=== PATIENT | male | born 1965 | race American Indian/Alaskan Native ===

== ENCOUNTER 2018-02-22 06:00 | Emergency (ER) | payer MEDICAID ==
[2018-02-22 06:26] VITALS: O2SAT 98
[2018-02-22] MEDS ORDERED: Iohexol 240 (50 ml) PO ONE (06:43)
[2018-02-22] MEDS ORDERED: Iohexol 240 (50 ml) ONE (06:54)
--- NOTE | 2018-02-22 07:00 | ED PDOC ---
HPI: Abdomen Time Seen by Provider: 02/22/18 06:30 Chief Complaint (Nursing): Abdominal Pain Chief Complaint (Provider): Abdominal Pain History Per: Patient History/Exam Limitations: no limitations Onset/Duration Of Symptoms: Days Current Symptoms Are (Timing): Still Present Associated Symptoms: Fever, Vomiting. denies: Diarrhea Additional Complaint(s): Jonnie Huynh is a 52 year old male with no past medical history who is presenting to the ED for evaluation of abdominal pain with associated vomiting and fevers, onset 3 days ago. Patient describes his abdominal pain as a 5/10. He states he was not tolerating solid foods PO but was able to tolerate liquids. He reports that he has been taking Mylanta with minimal relief. Patient denies any diarrhea or any other medical complaints. PMD: Doctor, Jacqui Past Medical History Reviewed: Historical Data, Nursing Documentation, Vital Signs Vital Signs: Last Vital Signs Temp 97 F L 02/22/18 11:21 Pulse 78 02/22/18 11:21 Resp 19 02/22/18 11:21 BP 128/76 02/22/18 11:21 Pulse Ox 98 02/22/18 11:21 - Medical History PMH: No Chronic Diseases - Surgical History Surgical History: No Surg Hx - Family History Family History: States: Unknown Family Hx - Social History Current smoker - smoking cessation education provided: Yes Alcohol: Social Drugs: Denies - Home Medications Home Medications: Ambulatory Orders Medication Instructions Recorded Ondansetron [Zofran] 4 mg PO Q8H #10 tab 02/22/18 Sulfamethoxazole/Trimethoprim 1 tab PO BID #20 tab 02/22/18 [Bactrim DS 800 mg-160 mg] Tamsulosin [Flomax] 0.4 mg PO DAILY #5 cap 02/22/18 traMADol [Ultram] 50 mg PO Q8 #10 tab 02/22/18 - Allergies Allergies/Adverse Reactions: Allergies Allergy/AdvReac Type Severity Reaction Status Date / Time No Known Allergies Allergy Verified 02/22/18 06:23 Review of Systems ROS Statement: Except As Marked, All Systems Reviewed And Found Negative Constitutional: Positive for: Fever Gastrointestinal: Positive for: Vomiting, Abdominal Pain. Negative for: Diarrhea Physical Exam - Reviewed Nursing Documentation Reviewed: Yes Vital Signs Reviewed: Yes - Physical Exam Appears: Positive for: Well, Non-toxic, No Acute Distress Head Exam: Positive for: ATRAUMATIC, NORMAL INSPECTION, NORMOCEPHALIC Skin: Positive for: Normal Color, Warm, DRY Eye Exam: Positive for: EOMI, Normal appearance, PERRL ENT: Positive for: Normal ENT Inspection Neck: Positive for: Normal, Painless ROM Cardiovascular/Chest: Positive for: Regular Rate, Rhythm Respiratory: Positive for: Normal Breath Sounds Gastrointestinal/Abdominal: Positive for: Tenderness (diffuse abdominal tenderness) Back: Positive for: Normal Inspection Extremity: Positive for: Normal ROM Neurologic/Psych: Positive for: Alert, Oriented. Negative for: Motor/Sensory Deficits - Laboratory Results Result Diagrams: 02/22/18 07:07 02/22/18 07:07 - ECG O2 Sat by Pulse Oximetry: 98 (RA) Pulse Ox Interpretation: Normal Medical Decision Making Medical Decision Making: Time: 6:44 Plan: --CT Abd/Pelvis --CMP --Lipase --CBC --Omnipaque 50 ml PO --Urinalysis --Urine Culture 7:00 Patient will be signed out to Dr. Camacho pending urinalysis, workup, labs, and CT. Scribe Attestation: Documented by, Ophelia Brewer acting as a scribe for Deon Armas MD. Provider Scribe Attestation: All medical record entries made by the Scribe were at my direction and personally dictated by me. I have reviewed the chart and agree that the record accurately reflects my personal performance of the history, physical exam, medical decision making, and the department course for this patient. I have also personally directed, reviewed, and agree with the discharge instructions and disposition. Disposition - Clinical Impression Clinical Impression: Kidney stone, Renal cyst - Patient ED Disposition Is Patient to be Admitted: Transfer of Care - Disposition Referrals: [facility] [Outside] Hector Sam MD [Staff Provider] - Disposition: Transfer of Care Disposition Time: 07:00 Condition: FAIR Prescriptions: Ondansetron [Zofran] 4 mg PO Q8H #10 tab Sulfamethoxazole/Trimethoprim [Bactrim DS 800 mg-160 mg] 1 tab PO BID #20 tab Tamsulosin [Flomax] 0.4 mg PO DAILY #5 cap traMADol [Ultram] 50 mg PO Q8 #10 tab Instructions: Kidney Stones in Adults, Polycystic Kidney Disease Forms: [employer] (Bulgarian) Patient Signed Over To: Alfonso Camacho
[2018-02-22 07:15] LABS: BASO # 0.1 K/uL (0.0-0.2); BASO % 1.2 % (0.0-2.0); EOS # 0.2 K/uL (0.0-0.7); HEMOGLOBIN 15.2 g/dL (12.0-18.0); LYMPH # 2.8 K/uL (1.0-4.3); MEAN CORPUSCULAR HEMOGLOBIN 33.5 pg (27.0-31.0); MEAN CORPUSCULAR HGB CONC 34.5 g/dL (33.0-37.0); MEAN PLATELET VOLUME 9.2 fl (7.2-11.7); MONO # 0.6 K/uL (0.0-0.8); MONO % 5.9 % (0.0-10.0); NEUT # 5.7 K/uL (1.8-7.0); NEUT % 60.9 % (50.0-75.0); NRBC % 0.1 % (0.0-0.0); RBC 4.55 Mil/uL (4.40-5.90); RED CELL DISTRIBUTION WIDTH 14.1 % (11.5-14.5); WHITE BLOOD COUNT 9.3 K/uL (4.8-10.8)
[2018-02-22 07:19] LABS: ALB/GLOB RATIO 1.3 (1.0-2.1)
[2018-02-22 07:23] LABS: ALBUMIN 4.3 g/dL (3.5-5.0); ALT/SGPT 24 U/L (21-72); AST/SGOT 25 U/L (17-59); BLOOD UREA NITROGEN 19 mg/dl (9-20); CALCIUM 9.5 mg/dL (8.4-10.2); GFR AFRICAN-AMERICAN > 60; GFR NON-AFRICAN AMERICAN > 60; LIPASE 24 U/L (23-300)
[2018-02-22 07:24] LABS: SQUAMOUS EPITHIAL 3 /hpf (0-5); URINE BILIRUBIN NEGATIVE (NEGATIVE); URINE BLOOD SMALL (NEGATIVE); URINE CLARITY SLIGHTY-CLOUDY (Clear); URINE COLOR YELLOW (YELLOW); URINE GLUCOSE (UA) NEG (Normal); URINE HYALINE CAST 0-2 /hpf (0-2); URINE LEUKOCYTE ESTERASE NEG Leu/uL (Negative); URINE PROTEIN 30 mg/dL (NEGATIVE); URINE UROBILINOGEN 0.2-1.0 mg/dL (0.2-1.0)
[2018-02-22] MEDS ORDERED: Potassium Chloride 20 mEq ER Tab PO ONE (07:40)
--- NOTE | 2018-02-22 08:10 | ED PDOC ---
- Laboratory Results Result Diagrams: 02/22/18 07:07 02/22/18 07:07 - ECG O2 Sat by Pulse Oximetry: 98 (RA) - Progress Re-evaluation Time: 10:51 Condition: Improved Medical Decision Making Medical Decision Makin:00 -Patient endorsed to me by Dr. Armas pending CT, workup, labs and reevaluation. Disposition - Clinical Impression Clinical Impression: Kidney stone, Renal cyst - POA Present On Arrival: None - Disposition Referrals: Hector Sam MD [Staff Provider] - [facility] [Outside] Disposition: Routine/Home Disposition Time: 10:55 Prescriptions: Ondansetron [Zofran] 4 mg PO Q8H #10 tab Sulfamethoxazole/Trimethoprim [Bactrim DS 800 mg-160 mg] 1 tab PO BID #20 tab Tamsulosin [Flomax] 0.4 mg PO DAILY #5 cap traMADol [Ultram] 50 mg PO Q8 #10 tab Instructions: Kidney Stones in Adults, Polycystic Kidney Disease Forms: [employer] (Cameroonian)
[2018-02-22 09:03] VITALS: PULSE 78; RESP 19
[2018-02-22] MEDS ORDERED: Iohexol 300 100 ML IJ ONE (09:08)
[2018-02-22] MEDS ORDERED: Sodium Chloride 0.9% 100 ML ONE (09:08)
--- NOTE | 2018-02-22 10:33 | CT ---
PROCEDURE: CT Abdomen and Pelvis with contrast HISTORY: abdominal pain left sided COMPARISON: None. TECHNIQUE: Contrast dose: 95 cc Omnipaque 300 Radiation dose: Total exam DLP = 708.23 mGy-cm. This CT exam was performed using one or more of the following dose reduction techniques: Automated exposure control, adjustment of the mA and/or kV according to patient size, and/or use of iterative reconstruction technique. FINDINGS: LOWER THORAX: Unremarkable. LIVER: Normal size, contour and attenuation. There are at least 3 sub cm nonspecific low-attenuation lesions. Multiple nodular calcifications consistent with old granulomatous disease. No biliary dilatation. GALLBLADDER AND BILE DUCTS: Unremarkable. PANCREAS: Unremarkable. No gross lesion or ductal dilatation. SPLEEN: Multiple nodular calcifications consistent with old granulomatous disease. Normal size. No mass. ADRENALS: Unremarkable. No mass. KIDNEYS AND URETERS: Three rounded low-attenuation right renal masses. These measure between 1.6 and 1.7 cm. They all measure 20 Hounsfield units to 30 Hounsfield units in attenuation. Similarly, there is a 13 mm mid left renal mass measuring 17 Hounsfield units. This is nonspecific. Correlate with ultrasound examination. No left renal mass. There is a 2 mm nonobstructing mid left renal calculus. There is no hydronephrosis. VASCULATURE: Unremarkable. No aortic aneurysm. BOWEL: Unremarkable. No obstruction. No gross mural thickening. APPENDIX: Normal appendix. PERITONEUM: Unremarkable. No free fluid. No free air. LYMPH NODES: Unremarkable. No enlarged lymph nodes. BLADDER: Unremarkable. REPRODUCTIVE: Unremarkable. BONES: No acute fracture. OTHER FINDINGS: None. IMPRESSION: Nonobstructing 2 mm mid left renal calculus. Bilateral low-density renal masses, possibly cysts follow-up intermediate attenuation. Recommend further evaluation with ultrasound examination on a nonemergent basis. Old hepatic and splenic granulomas. No other acute abnormality.
[2018-02-22 11:22] VITALS: BP 128/76; TEMP 97
== END 2018-02-22 11:22 | disposition home or self-care (01) ==
LOC: H.ER 06:00
DX: N20.0 Calculus of kidney (principal); N28.1 Cyst of kidney, acquired
CPT/HCPCS: 74177; 80053; 81003; 83690; 85025; 87086; 99283; Q9966; Q9967

== ENCOUNTER 2018-02-28 12:54 | Emergency (ER) | payer MEDICAID ==
[2018-02-28 12:58] VITALS: BMI 26.9
[2018-02-28 13:00] VITALS: BP 131/87; PULSE 58; RESP 17; TEMP 98.1; O2SAT 97
--- NOTE | 2018-02-28 13:11 | ED PDOC ---
HPI: General Adult Time Seen by Provider: 02/28/18 13:06 Chief Complaint (Nursing): Med Refill Chief Complaint (Provider): back pain History Per: Patient Additional Complaint(s): 52-year-old male presents to emergency department requesting refill for tramadol. He was seen on February 22 at this ED and was diagnosed with non- obstructing kidney stone and multiple renal cysts. Patient has been taking tramadol for the past few days which has helped and he is requesting refill today. Patient was referred to nephrology on-call but never followed up. He states that fever and vomiting have resolved but he still has pain. Patient denies dysuria or hematuria. PMD: none Past Medical History Reviewed: Historical Data, Nursing Documentation, Vital Signs Vital Signs: Last Vital Signs Temp 98.1 F 02/28/18 12:58 Pulse 58 L 02/28/18 12:58 Resp 17 02/28/18 12:58 BP 131/87 02/28/18 12:58 Pulse Ox 97 02/28/18 13:43 - Medical History PMH: No Chronic Diseases - Surgical History Surgical History: No Surg Hx - Family History Family History: States: No Known Family Hx - Living Arrangements Living Arrangements: With Family - Social History Current smoker - smoking cessation education provided: Yes Alcohol: None Drugs: Denies - Home Medications Home Medications: Ambulatory Orders Medication Instructions Recorded Ondansetron [Zofran] 4 mg PO Q8H #10 tab 02/22/18 Sulfamethoxazole/Trimethoprim 1 tab PO BID #20 tab 02/22/18 [Bactrim DS 800 mg-160 mg] Tamsulosin [Flomax] 0.4 mg PO DAILY #5 cap 02/22/18 traMADol [Ultram] 50 mg PO Q8 #10 tab 02/22/18 Ibuprofen [Motrin Tab] 800 mg PO Q8 PRN #30 tab 02/28/18 - Allergies Allergies/Adverse Reactions: Allergies Allergy/AdvReac Type Severity Reaction Status Date / Time No Known Allergies Allergy Verified 02/22/18 06:23 Review of Systems ROS Statement: Except As Marked, All Systems Reviewed And Found Negative Constitutional: Negative for: Fever, Chills Cardiovascular: Negative for: Chest Pain Respiratory: Negative for: Cough Gastrointestinal: Negative for: Nausea, Vomiting Musculoskeletal: Positive for: Back Pain Physical Exam - Reviewed Nursing Documentation Reviewed: Yes Vital Signs Reviewed: Yes - Physical Exam Appears: Positive for: Well, Non-toxic, No Acute Distress Skin: Positive for: Normal Color. Negative for: Rash Eye Exam: Positive for: Normal appearance Cardiovascular/Chest: Positive for: Regular Rate, Rhythm Respiratory: Positive for: Normal Breath Sounds Gastrointestinal/Abdominal: Positive for: Soft. Negative for: Tenderness, Distended, Guarding, Rebound Back: Negative for: L CVA Tenderness, R CVA Tenderness, Vertebral Tenderness Extremity: Positive for: Normal ROM Neurologic/Psych: Positive for: Alert, Oriented - ECG O2 Sat by Pulse Oximetry: 97 Pulse Ox Interpretation: Normal Medical Decision Making Medical Decision Makin52 year old with flank pain Patient is afebrile, well appearing upon arrival. Plan: Toradol 30 IM Patient given prescription for ibuprofen. Results of CT were discussed with patient, I stressed to patient the importance of follow-up with nephrology given CT findings. Patient verbalized understanding of need for close follow- up. Patient provided with contact information for neurology on-call and primary doctor on-call. Disposition - Clinical Impression Clinical Impression: Renal cyst, Flank pain - Patient ED Disposition Is Patient to be Admitted: No Counseled Patient/Family Regarding: Need For Followup, Rx Given, Smoking Cessation - Disposition Referrals: Hector Sam MD [Staff Provider] - Dexter Reeves MD [Staff Provider] - Disposition: Routine/Home Disposition Time: 13:16 Condition: STABLE Additional Instructions: Take rx meds as directed. Follow up PILLO with primary doctor and with specialist. Prescriptions: Ibuprofen [Motrin Tab] 800 mg PO Q8 PRN #30 tab PRN Reason: Pain, Moderate (4-7) Instructions: Flank Pain (DC) Forms: [employer] ([place]ican)
== END 2018-02-28 14:08 | disposition home or self-care (01) ==
LOC: H.ER 12:54
DX: R10.9 Unspecified abdominal pain (principal); N28.1 Cyst of kidney, acquired
CPT/HCPCS: 96372; 99282; J1885